=== PATIENT | male | born 1955 | race Caucasian/White ===

== ENCOUNTER 2019-12-08 19:22 | Inpatient (IN) ==
[2019-12-08] MEDS ORDERED: Naloxone 0.4 MG/ML INJ IVP PRN ×2 (22:50→23:20)
[2019-12-08] MEDS ORDERED: Fluticasone Propionate Nasal 50 MCG/SPRAY BOTTLE NS SCH (23:30)
[2019-12-09] MEDS ORDERED: niCARdipine 20 MG in 0.9 % Sodium Chloride 192 ML IVC SCH (00:30)
[2019-12-09 01:16] LABS: INR 1.2; Prothrombin Time 13.4 Seconds (9.4-12.1)
[2019-12-09 01:20] LABS: Magnesium 1.9 mg/dL (1.6-2.6); Phosphorous 4.3 mg/dL (2.7-4.5)
[2019-12-09 01:21] LABS: Calcium 7.7 mg/dL (8.6-10.3); Potassium 3.9 mEq/L (3.5-5.1)
[2019-12-09] MEDS: niCARdipine 20 MG/200 ML MLS IVC SCH ×3 (01:42→11:25)
[2019-12-09 01:57] LABS: Bilirubin,Urine Negative (Negative); Blood,Urine Moderate (Negative); Clarity,Urine Clear (Clear); Color,Urine Yellow (Yellow); Glucose,Urine (UA) 250 mg/dL (Normal); Ketones,Urine Trace mg/dL (Negative); Leukocyte Esterase,Urine Negative (Negative); Nitrite,Urine Negative (Negative); Protein,Urine >=1000 mg/dL (Neg-Trace); Specific Gravity,Urine 1.024 (1.010-1.025); Urobilinogen,Urine Normal (Normal)
[2019-12-09 02:00] LABS: Bacteria,Urine None Seen per hpf (None-Few); Hyaline Casts,Urine Few per lpf (None-Few); Squamous Epithelial Cell,Urine Many per lpf (None-Few)
[2019-12-09 02:03] LABS: Amphetamine Screen,Urine Negative ng/mL (Cutoff=1000); Barbiturate Screen,Urine Negative ng/mL (Cutoff=200); Benzodiazepines Screen,Urine Negative ng/mL (Cutoff=200); Cannabinoid Screen,Urine Negative ng/mL (Cutoff = 50); Cocaine Screen,Urine Negative ng/mL (Cutoff= 300); Opiate Screen,Urine Negative ng/mL (Cutoff=300); Phencyclidine Screen,Urine Negative ng/mL (Cutoff=25)
[2019-12-09 02:04] LABS: Sodium, Urine 52.8 mEq/L
[2019-12-09 02:29] LABS: Basophils % 0.6 %; Eosinophils # 0.2 K/mcL (0.0-0.6); Eosinophils % 2.1 %; Hematocrit 30.8 % (37.5-50.1); Hemoglobin 10.1 g/dL (12.9-16.9); Immature Granulocytes % 0.4 % (0-4); Lymphocytes # 1.5 K/mcL (0.6-4.6); Lymphocytes % 21.3 %; Mean Corpuscular HGB Conc 32.8 g/dL (31.6-35.5); Mean Corpuscular Hemoglobin 29.4 pg (28.0-33.3); Mean Corpuscular Volume 89.5 fL (83.0-100.0); Mean Platelet Volume 11.2 fL (9.4-12.4); Monocytes # 0.7 K/mcL (0.0-1.3); Monocytes % 9.2 %; Neutrophils # 4.8 K/mcL (1.6-8.9); Platelet Count 225 K/mcL (140-400); Red Blood Count 3.44 M/mcL (4.19-5.50); Red Cell Distribution Width 13.4 % (11.5-14.5); Segmented Neutrophils % 66.4 %; White Blood Count 7.2 K/mcL (4.3-11.1)
[2019-12-09 02:37] LABS: Calcium 7.6 mg/dL (8.6-10.3); Potassium 3.8 mEq/L (3.5-5.1)
[2019-12-09] MEDS ORDERED: *HR* Heparin 5,000 UNIT/ML VIAL IVP PRN (03:43)
[2019-12-09] MEDS: Heparin 25,000 UNIT/250 ML D5W 25,000 UNIT/250 ML IV.SOLN IVC SCH ×2 (04:03→20:18)
[2019-12-09] MEDS: *HR* Heparin 5,000 UNIT/ML VIAL IVP PRN (04:04)
[2019-12-09 05:47] LABS: Troponin I 0.07 ng/mL (< 0.04)
[2019-12-09] MEDS ORDERED: 0.9 % Sodium Chloride 1,000 ML IVC SCH (10:15)
[2019-12-09] MEDS ORDERED: amLODIPine 5 MG TABLET PO SCH ×2 (11:45)
[2019-12-09 13:09] LABS: Thyroid Stimulating Hormone 3.143 mcIU/mL (0.340-5.600)
[2019-12-09] MEDS: Isosorbide MONOnitrate (24 HR) 60 MG TAB.ER.24H PO SCH (13:42)
[2019-12-09 14:17] LABS: VBG Ionized Calcium 1.08 mmol/L (1.15-1.35)
[2019-12-09 14:33] LABS: Albumin 2.4 g/dL (3.5-5.7); Albumin/Globulin Ratio 0.7 (1.1-2.2); Bilirubin,Direct 0.1 mg/dL (0.0-0.2); Bilirubin,Indirect 0.3 mg/dL (0.0-1.0); Bilirubin,Total 0.4 mg/dL (0.3-1.0); Globulin 3.3 g/dL (2.4-3.5); Total Protein 5.7 g/dL (6.4-8.9)
[2019-12-09 14:34] LABS: Rheumatoid Factor < 10 IU/mL (Less than 14)
[2019-12-09 15:00] LABS: Complement C3 123 mg/dL (87-200)
[2019-12-09] MEDS: Furosemide 20 MG/2 ML VIAL IVP ONE (15:10)
[2019-12-09] MEDS: hydrALAZINE 25 MG TABLET PO SCH ×2 (15:10→23:58)
[2019-12-09] MEDS ORDERED: Perflutren Lipid Microsphere 1.3 ML in 0.9 % Sodium Chloride 8.7 ML IVP ONE (15:21)
[2019-12-09] MEDS ORDERED: hydrALAZINE 25 MG TABLET PO SCH (16:00)
[2019-12-09 19:09] LABS: Vitamin D 25 Hydroxy 14 ng/mL (30-80)
[2019-12-09] MEDS: *HR* OxyCODONE/APAP 5/325 TABLET PO PRN (20:20)
[2019-12-09] MEDS ORDERED: *HR* LORazepam 2 MG/ML VIAL IVP PRN ×3 (22:08)
[2019-12-10] MEDS: *HR* OxyCODONE/APAP 5/325 TABLET PO PRN (03:04)
[2019-12-10 04:23] LABS: Protein/Creatinine Ratio,Urine 9.39 mg/mg (0.00-0.20); Sodium, Urine 29.1 mEq/L
[2019-12-10] MEDS: hydrALAZINE 25 MG TABLET PO SCH ×3 (08:11→19:49)
[2019-12-10] MEDS: Isosorbide MONOnitrate (24 HR) 60 MG TAB.ER.24H PO SCH (08:11)
[2019-12-10] MEDS: Vitamin B Complex/Vit C/Vit E 1 EACH TABLET PO SCH (08:11)
[2019-12-10] MEDS: Folic Acid 1 MG TABLET PO SCH (08:11)
[2019-12-10] MEDS: Thiamine (B-1) 100 MG TABLET PO SCH (08:11)
[2019-12-10 09:55] LABS: Basophils % 0.3 %; Eosinophils # 0.1 K/mcL (0.0-0.6); Eosinophils % 1.3 %; Hematocrit 28.9 % (37.5-50.1); Hemoglobin 9.6 g/dL (12.9-16.9); Immature Granulocytes % 0.5 % (0-4); Lymphocytes # 0.9 K/mcL (0.6-4.6); Lymphocytes % 13.8 %; Mean Corpuscular HGB Conc 33.2 g/dL (31.6-35.5); Mean Corpuscular Hemoglobin 29.7 pg (28.0-33.3); Mean Corpuscular Volume 89.5 fL (83.0-100.0); Mean Platelet Volume 11.5 fL (9.4-12.4); Monocytes # 0.3 K/mcL (0.0-1.3); Monocytes % 4.6 %; Platelet Count 236 K/mcL (140-400); Red Blood Count 3.23 M/mcL (4.19-5.50); Red Cell Distribution Width 13.5 % (11.5-14.5); Segmented Neutrophils % 79.5 %; White Blood Count 6.3 K/mcL (4.3-11.1)
[2019-12-10] MEDS ORDERED: amLODIPine 5 MG TABLET PO SCH (10:00)
[2019-12-10 10:10] LABS: % Iron Saturation 21 % (20-55); Iron 44 mcg/dL (65-175); Transferrin 148 mg/dL (203-362)
[2019-12-10 10:29] LABS: Ferritin 191 ng/mL (20-250)
[2019-12-10] MEDS ORDERED: hydrALAZINE 25 MG TABLET PO ONE (11:20)
[2019-12-10] MEDS: Heparin 25,000 UNIT/250 ML D5W 25,000 UNIT/250 ML IV.SOLN IVC SCH (12:28)
[2019-12-10] MEDS: *HR* Heparin 5,000 UNIT/ML VIAL IVP PRN (15:18)
[2019-12-10] MEDS: Aspirin 81 MG TAB.CHEW PO SCH (20:00)
[2019-12-10] MEDS: amLODIPine 5 MG TABLET PO SCH (20:00)
[2019-12-10] MEDS: *HR* Heparin 5,000 UNIT/ML VIAL SQ SCH (20:34)
[2019-12-11 01:32] LABS: Amphetamine Screen,Urine Negative ng/mL (Cutoff=1000); Barbiturate Screen,Urine Negative ng/mL (Cutoff=200); Benzodiazepines Screen,Urine Negative ng/mL (Cutoff=200); Cannabinoid Screen,Urine Negative ng/mL (Cutoff = 50); Cocaine Screen,Urine Negative ng/mL (Cutoff= 300); Opiate Screen,Urine Negative ng/mL (Cutoff=300); Phencyclidine Screen,Urine Negative ng/mL (Cutoff=25)
[2019-12-11] MEDS: *HR* Heparin 5,000 UNIT/ML VIAL SQ SCH ×3 (04:38→19:57)
[2019-12-11] MEDS ORDERED: Regadenoson 0.4 MG/5 ML SYRINGE IVP ONE ×2 (06:13→12:42)
[2019-12-11 07:45] LABS: Basophils % 0.3 %; Eosinophils # 0.3 K/mcL (0.0-0.6); Eosinophils % 4.2 %; Hemoglobin 8.3 g/dL (12.9-16.9); Immature Granulocytes % 0.1 % (0-4); Lymphocytes # 1.4 K/mcL (0.6-4.6); Lymphocytes % 19.7 %; Mean Corpuscular HGB Conc 33.2 g/dL (31.6-35.5); Mean Corpuscular Hemoglobin 29.2 pg (28.0-33.3); Mean Platelet Volume 11.1 fL (9.4-12.4); Monocytes # 0.6 K/mcL (0.0-1.3); Monocytes % 8.4 %; Neutrophils # 4.7 K/mcL (1.6-8.9); Platelet Count 219 K/mcL (140-400); Red Blood Count 2.84 M/mcL (4.19-5.50); Red Cell Distribution Width 13.7 % (11.5-14.5); Segmented Neutrophils % 67.3 %; White Blood Count 6.9 K/mcL (4.3-11.1)
[2019-12-11] MEDS: Folic Acid 1 MG TABLET PO SCH (07:48)
[2019-12-11] MEDS: Vitamin B Complex/Vit C/Vit E 1 EACH TABLET PO SCH (07:48)
[2019-12-11] MEDS: amLODIPine 5 MG TABLET PO SCH ×2 (07:48→09:25)
[2019-12-11] MEDS: hydrALAZINE 25 MG TABLET PO SCH ×3 (07:48→19:58)
[2019-12-11] MEDS: Thiamine (B-1) 100 MG TABLET PO SCH (07:48)
[2019-12-11] MEDS: Aspirin 81 MG TAB.CHEW PO SCH (07:48)
[2019-12-11 08:04] LABS: Calcium 7.8 mg/dL (8.6-10.3); Potassium 3.4 mEq/L (3.5-5.1)
[2019-12-11] MEDS: *HR* OxyCODONE/APAP 5/325 TABLET PO PRN (20:04)
[2019-12-11] MEDS ORDERED: Furosemide 20 MG/2 ML VIAL IVP SCH (21:00)
[2019-12-12 00:50] LABS: Basophils % 0.5 %; Eosinophils # 0.2 K/mcL (0.0-0.6); Eosinophils % 4.5 %; Hematocrit 24.6 % (37.5-50.1); Hemoglobin 8.3 g/dL (12.9-16.9); Immature Granulocytes % 0.2 % (0-4); Lymphocytes # 0.9 K/mcL (0.6-4.6); Lymphocytes % 19.6 %; Mean Corpuscular HGB Conc 33.7 g/dL (31.6-35.5); Mean Corpuscular Volume 88.8 fL (83.0-100.0); Mean Platelet Volume 11.9 fL (9.4-12.4); Monocytes # 0.4 K/mcL (0.0-1.3); Neutrophils # 2.9 K/mcL (1.6-8.9); Platelet Count 184 K/mcL (140-400); Red Blood Count 2.77 M/mcL (4.19-5.50); Red Cell Distribution Width 13.6 % (11.5-14.5); Segmented Neutrophils % 66.2 %; White Blood Count 4.4 K/mcL (4.3-11.1)
[2019-12-12 01:05] LABS: Calcium 7.6 mg/dL (8.6-10.3); Potassium 3.8 mEq/L (3.5-5.1)
[2019-12-12] MEDS: *HR* OxyCODONE/APAP 5/325 TABLET PO PRN ×2 (04:33→11:11)
[2019-12-12] MEDS: *HR* Heparin 5,000 UNIT/ML VIAL SQ SCH ×3 (04:33→21:17)
[2019-12-12] MEDS: Aspirin 81 MG TAB.CHEW PO SCH (08:28)
[2019-12-12] MEDS: hydrALAZINE 25 MG TABLET PO SCH ×4 (08:28→21:16)
[2019-12-12] MEDS: Folic Acid 1 MG TABLET PO SCH (08:28)
[2019-12-12] MEDS: Vitamin B Complex/Vit C/Vit E 1 EACH TABLET PO SCH (08:28)
[2019-12-12] MEDS: amLODIPine 5 MG TABLET PO SCH (08:28)
[2019-12-12] MEDS: Thiamine (B-1) 100 MG TABLET PO SCH (08:28)
[2019-12-12 10:49] LABS: ANA IgG by ELISA NONE DETECTED (None Detected); Serine Protease-3 Antibody 0 AU/mL (0-19)
[2019-12-12] MEDS ORDERED: Furosemide 20 MG/2 ML VIAL IVP ONE (11:43)
[2019-12-12] MEDS: Furosemide 20 MG/2 ML VIAL IVP ONE (13:59)
[2019-12-12 19:14] LABS: CK-BB (CK isoenzymes) 0 % (0-0); CK-MB (CK isoenzymes) 4 % (0-4); CK-MM (CK-isoenzymes) 96 % (96-100)
[2019-12-13 01:04] LABS: Basophils % 0.3 %; Eosinophils # 0.2 K/mcL (0.0-0.6); Eosinophils % 6.1 %; Hematocrit 27.2 % (37.5-50.1); Hemoglobin 8.9 g/dL (12.9-16.9); Immature Granulocytes % 0.3 % (0-4); Lymphocytes # 0.8 K/mcL (0.6-4.6); Lymphocytes % 21.4 %; Mean Corpuscular HGB Conc 32.7 g/dL (31.6-35.5); Mean Corpuscular Hemoglobin 29.2 pg (28.0-33.3); Mean Corpuscular Volume 89.2 fL (83.0-100.0); Mean Platelet Volume 12.5 fL (9.4-12.4); Monocytes # 0.4 K/mcL (0.0-1.3); Neutrophils # 2.2 K/mcL (1.6-8.9); Platelet Count 168 K/mcL (140-400); Red Blood Count 3.05 M/mcL (4.19-5.50); Red Cell Distribution Width 13.7 % (11.5-14.5); Segmented Neutrophils % 61.9 %; White Blood Count 3.6 K/mcL (4.3-11.1)
[2019-12-13 01:19] LABS: Calcium 7.8 mg/dL (8.6-10.3); Potassium 4.6 mEq/L (3.5-5.1)
[2019-12-13] MEDS: *HR* Heparin 5,000 UNIT/ML VIAL SQ SCH ×3 (06:12→20:50)
[2019-12-13] MEDS: hydrALAZINE 25 MG TABLET PO SCH ×3 (08:07→20:49)
[2019-12-13] MEDS: Vitamin B Complex/Vit C/Vit E 1 EACH TABLET PO SCH (08:07)
[2019-12-13] MEDS: Folic Acid 1 MG TABLET PO SCH (08:07)
[2019-12-13] MEDS: Aspirin 81 MG TAB.CHEW PO SCH (08:07)
[2019-12-13] MEDS: amLODIPine 5 MG TABLET PO SCH (08:07)
[2019-12-13] MEDS: Thiamine (B-1) 100 MG TABLET PO SCH (08:07)
[2019-12-13] MEDS ORDERED: NIFEdipine XL (24 HR) 60 MG TAB.ER.24 PO SCH (09:15)
[2019-12-13 09:18] LABS: CK Total (Ck Isoenzymes) 403 U/L (20-200)
[2019-12-13] MEDS ORDERED: Furosemide 40 MG/4 ML VIAL IVP ONE (12:20)
[2019-12-13 14:05] LABS: Alpha 2 Globulin (PEP) 0.95 g/dL (0.48-1.05)
[2019-12-13] MEDS: NIFEdipine XL (24 HR) 60 MG TAB.ER.24 PO SCH (17:18)
[2019-12-14] MEDS: *HR* OxyCODONE/APAP 5/325 TABLET PO PRN ×3 (02:38→15:26)
[2019-12-14 05:01] LABS: Potassium 4.2 mEq/L (3.5-5.1)
[2019-12-14] MEDS: *HR* Heparin 5,000 UNIT/ML VIAL SQ SCH ×3 (06:17→22:33)
[2019-12-14 07:50] LABS: IFE Reflexed NOT DONE
[2019-12-14] MEDS: Thiamine (B-1) 100 MG TABLET PO SCH (09:00)
[2019-12-14] MEDS: Folic Acid 1 MG TABLET PO SCH (09:00)
[2019-12-14] MEDS: Aspirin 81 MG TAB.CHEW PO SCH (09:00)
[2019-12-14] MEDS: Vitamin B Complex/Vit C/Vit E 1 EACH TABLET PO SCH (09:00)
[2019-12-14] MEDS: hydrALAZINE 25 MG TABLET PO SCH ×3 (09:01→22:33)
[2019-12-14] MEDS: NIFEdipine XL (24 HR) 60 MG TAB.ER.24 PO SCH (10:11)
[2019-12-14] MEDS: Albumin 25% 25gram/100mL 25 GM/100 ML IV.SOLN IVPB SCH (15:33)
[2019-12-14] MEDS ORDERED: Furosemide 40 MG/4 ML VIAL IVP SCH (16:00)
[2019-12-15] MEDS: Albumin 25% 25gram/100mL 25 GM/100 ML IV.SOLN IVPB SCH ×4 (01:13→22:20)
[2019-12-15 02:06] LABS: Calcium 7.9 mg/dL (8.6-10.3); Magnesium 2.2 mg/dL (1.6-2.6); Potassium 4.7 mEq/L (3.5-5.1)
[2019-12-15] MEDS: Furosemide 40 MG/4 ML VIAL IVP SCH ×2 (03:36→11:28)
[2019-12-15] MEDS: *HR* Heparin 5,000 UNIT/ML VIAL SQ SCH (05:36)
[2019-12-15] MEDS: Thiamine (B-1) 100 MG TABLET PO SCH (08:59)
[2019-12-15] MEDS: hydrALAZINE 25 MG TABLET PO SCH ×3 (08:59→22:19)
[2019-12-15] MEDS: Folic Acid 1 MG TABLET PO SCH (09:00)
[2019-12-15] MEDS: Vitamin B Complex/Vit C/Vit E 1 EACH TABLET PO SCH (09:00)
[2019-12-15] MEDS: Aspirin 81 MG TAB.CHEW PO SCH (09:00)
[2019-12-15] MEDS: NIFEdipine XL (24 HR) 60 MG TAB.ER.24 PO SCH (09:00)
[2019-12-15] MEDS: *HR* OxyCODONE/APAP 5/325 TABLET PO PRN ×2 (09:05→15:09)
[2019-12-15 15:30] LABS: Bilirubin,Urine Negative (Negative); Blood,Urine Large (Negative); Clarity,Urine Cloudy (Clear); Color,Urine Yellow (Yellow); Glucose,Urine (UA) Normal (Normal); Ketones,Urine Negative (Negative); Leukocyte Esterase,Urine Small (Negative); Nitrite,Urine Negative (Negative); PH,Urine 5.5 pH Units (5.0-8.0); Protein,Urine >=300 mg/dL (Neg-Trace); Specific Gravity,Urine 1.016 (1.010-1.025); Urobilinogen,Urine Normal (Normal)
[2019-12-15 15:54] LABS: GBM IgG Multiplex Bead Assay 0 AU/mL (0-19); Glomerular Basement Memb IgG NEGATIVE (Negative)
[2019-12-15 16:32] LABS: Hepatitis B Surface Antigen Nonreactive (Nonreactive)
[2019-12-15 17:02] LABS: HIV-1&2 Antibody & p24 Ag Nonreactive (Nonreactive)
[2019-12-15 17:09] LABS: Hepatitis B Core IgM Nonreactive (Nonreactive)
[2019-12-15 17:12] LABS: Hepatitis A Antibody IgM Nonreactive (Nonreactive)
[2019-12-15 23:00] LABS: Hepatitis C Virus Antibody Reactive (Nonreactive)
[2019-12-16] MEDS: Furosemide 40 MG/4 ML VIAL IVP SCH (00:04)
[2019-12-16] MEDS: *HR* OxyCODONE/APAP 5/325 TABLET PO PRN ×3 (00:13→17:37)
[2019-12-16] MEDS ORDERED: Furosemide 40 MG/4 ML VIAL IVP ONE (00:15)
[2019-12-16 01:28] LABS: Basophils % 0.3 %; Eosinophils # 0.1 K/mcL (0.0-0.6); Eosinophils % 2.6 %; Hematocrit 24.8 % (37.5-50.1); Hemoglobin 8.2 g/dL (12.9-16.9); Immature Granulocytes % 0.3 % (0-4); Lymphocytes # 0.5 K/mcL (0.6-4.6); Lymphocytes % 13.3 %; Mean Corpuscular HGB Conc 33.1 g/dL (31.6-35.5); Mean Corpuscular Hemoglobin 29.9 pg (28.0-33.3); Mean Corpuscular Volume 90.5 fL (83.0-100.0); Mean Platelet Volume 12.4 fL (9.4-12.4); Monocytes # 0.3 K/mcL (0.0-1.3); Monocytes % 8.7 %; Neutrophils # 2.9 K/mcL (1.6-8.9); Platelet Count 179 K/mcL (140-400); Red Blood Count 2.74 M/mcL (4.19-5.50); Red Cell Distribution Width 13.6 % (11.5-14.5); Segmented Neutrophils % 74.8 %; White Blood Count 3.9 K/mcL (4.3-11.1)
[2019-12-16 01:47] LABS: Calcium 8.6 mg/dL (8.6-10.3); Potassium 5.1 mEq/L (3.5-5.1)
[2019-12-16] MEDS ORDERED: *HR* OxyCODONE Immed Rel 5 MG TABLET PO ONE (04:51)
[2019-12-16] MEDS: Albumin 25% 25gram/100mL 25 GM/100 ML IV.SOLN IVPB SCH ×2 (06:04→13:11)
[2019-12-16] MEDS: Thiamine (B-1) 100 MG TABLET PO SCH (07:39)
[2019-12-16] MEDS: Folic Acid 1 MG TABLET PO SCH (07:40)
[2019-12-16] MEDS: NIFEdipine XL (24 HR) 60 MG TAB.ER.24 PO SCH (07:40)
[2019-12-16] MEDS: Vitamin B Complex/Vit C/Vit E 1 EACH TABLET PO SCH (07:40)
[2019-12-16] MEDS: hydrALAZINE 25 MG TABLET PO SCH ×3 (07:40→19:48)
[2019-12-16] MEDS: Aspirin 81 MG TAB.CHEW PO SCH (07:40)
[2019-12-16] MEDS ORDERED: *HR* Heparin 5,000 UNIT/ML VIAL ONE (19:29)
[2019-12-17] MEDS: *HR* OxyCODONE/APAP 5/325 TABLET PO PRN (02:27)
[2019-12-17 05:47] LABS: Basophils % 0.4 %; Eosinophils # 0.1 K/mcL (0.0-0.6); Eosinophils % 3.1 %; Hematocrit 27.3 % (37.5-50.1); Hemoglobin 8.8 g/dL (12.9-16.9); Immature Granulocytes % 0.2 % (0-4); Lymphocytes # 0.7 K/mcL (0.6-4.6); Lymphocytes % 14.8 %; Mean Corpuscular HGB Conc 32.2 g/dL (31.6-35.5); Mean Corpuscular Hemoglobin 29.2 pg (28.0-33.3); Mean Corpuscular Volume 90.7 fL (83.0-100.0); Mean Platelet Volume 12.1 fL (9.4-12.4); Monocytes # 0.4 K/mcL (0.0-1.3); Monocytes % 9.4 %; Neutrophils # 3.2 K/mcL (1.6-8.9); Platelet Count 225 K/mcL (140-400); Red Blood Count 3.01 M/mcL (4.19-5.50); Red Cell Distribution Width 13.5 % (11.5-14.5); Segmented Neutrophils % 72.1 %; White Blood Count 4.5 K/mcL (4.3-11.1)
[2019-12-17 06:07] LABS: Calcium 8.9 mg/dL (8.6-10.3); Potassium 4.8 mEq/L (3.5-5.1)
[2019-12-17] MEDS: hydrALAZINE 25 MG TABLET PO SCH ×3 (07:18→19:57)
[2019-12-17] MEDS: Thiamine (B-1) 100 MG TABLET PO SCH (07:19)
[2019-12-17] MEDS: Vitamin B Complex/Vit C/Vit E 1 EACH TABLET PO SCH (07:19)
[2019-12-17] MEDS: Isosorbide MONOnitrate (24 HR) 60 MG TAB.ER.24H PO SCH (07:19)
[2019-12-17] MEDS: Aspirin 81 MG TAB.CHEW PO SCH (07:19)
[2019-12-17] MEDS: NIFEdipine XL (24 HR) 60 MG TAB.ER.24 PO SCH (07:19)
[2019-12-17] MEDS: Folic Acid 1 MG TABLET PO SCH (07:19)
[2019-12-17] MEDS ORDERED: 0.9 % Sodium Chloride 500 ML ONE (13:00)
[2019-12-17] MEDS ORDERED: *HR* FentaNYL (PF) 100 MCG/2 ML VIAL IVP ONE (13:06)
[2019-12-17] MEDS ORDERED: *HR* Midazolam HCl 2 MG/2 ML VIAL IVP ONE (13:06)
[2019-12-18 01:50] LABS: Basophils % 0.5 %; Eosinophils # 0.1 K/mcL (0.0-0.6); Eosinophils % 2.1 %; Hematocrit 25.2 % (37.5-50.1); Hemoglobin 8.3 g/dL (12.9-16.9); Immature Granulocytes % 0.5 % (0-4); Lymphocytes # 0.5 K/mcL (0.6-4.6); Lymphocytes % 11.2 %; Mean Corpuscular HGB Conc 32.9 g/dL (31.6-35.5); Mean Corpuscular Hemoglobin 29.4 pg (28.0-33.3); Mean Corpuscular Volume 89.4 fL (83.0-100.0); Mean Platelet Volume 12.4 fL (9.4-12.4); Monocytes # 0.5 K/mcL (0.0-1.3); Monocytes % 10.6 %; Neutrophils # 3.3 K/mcL (1.6-8.9); Platelet Count 205 K/mcL (140-400); Red Blood Count 2.82 M/mcL (4.19-5.50); Red Cell Distribution Width 13.3 % (11.5-14.5); Segmented Neutrophils % 75.1 %; White Blood Count 4.4 K/mcL (4.3-11.1)
[2019-12-18 01:54] LABS: Calcium 8.5 mg/dL (8.6-10.3); Potassium 4.9 mEq/L (3.5-5.1)
[2019-12-18 09:44] LABS: Albumin 3.6 g/dL (3.5-5.7); Albumin/Globulin Ratio 1.4 (1.1-2.2); Bilirubin,Direct 0.1 mg/dL (0.0-0.2); Bilirubin,Indirect 0.2 mg/dL (0.0-1.0); Bilirubin,Total 0.3 mg/dL (0.3-1.0); Globulin 2.6 g/dL (2.4-3.5); Total Protein 6.2 g/dL (6.4-8.9)
[2019-12-18] MEDS: polyethylene glycoL 3350 17 GM POWD.PACK PO SCH ×2 (11:00→20:48)
[2019-12-18] MEDS: Isosorbide MONOnitrate (24 HR) 60 MG TAB.ER.24H PO SCH (14:54)
[2019-12-18] MEDS: Aspirin 81 MG TAB.CHEW PO SCH (14:54)
[2019-12-18] MEDS: Folic Acid 1 MG TABLET PO SCH (14:54)
[2019-12-18] MEDS: Thiamine (B-1) 100 MG TABLET PO SCH (14:54)
[2019-12-18] MEDS: Vitamin B Complex/Vit C/Vit E 1 EACH TABLET PO SCH (14:54)
[2019-12-18] MEDS: hydrALAZINE 25 MG TABLET PO SCH ×3 (14:59→20:39)
[2019-12-18] MEDS: NIFEdipine XL (24 HR) 60 MG TAB.ER.24 PO SCH (14:59)
[2019-12-18] MEDS: *HR* OxyCODONE/APAP 5/325 TABLET PO PRN (20:40)
[2019-12-19 01:28] LABS: Basophils % 0.3 %; Eosinophils # 0.1 K/mcL (0.0-0.6); Hematocrit 24.6 % (37.5-50.1); Hemoglobin 7.9 g/dL (12.9-16.9); Immature Granulocytes % 0.3 % (0-4); Lymphocytes # 0.4 K/mcL (0.6-4.6); Lymphocytes % 10.2 %; Mean Corpuscular HGB Conc 32.1 g/dL (31.6-35.5); Mean Corpuscular Hemoglobin 29.7 pg (28.0-33.3); Mean Corpuscular Volume 92.5 fL (83.0-100.0); Mean Platelet Volume 12.3 fL (9.4-12.4); Monocytes # 0.4 K/mcL (0.0-1.3); Monocytes % 10.9 %; Platelet Count 201 K/mcL (140-400); Red Blood Count 2.66 M/mcL (4.19-5.50); Red Cell Distribution Width 13.3 % (11.5-14.5); Segmented Neutrophils % 76.3 %; White Blood Count 3.9 K/mcL (4.3-11.1)
[2019-12-19 01:49] LABS: Calcium 8.3 mg/dL (8.6-10.3); Potassium 4.8 mEq/L (3.5-5.1)
[2019-12-19] MEDS: *HR* OxyCODONE/APAP 5/325 TABLET PO PRN ×3 (03:04→18:12)
[2019-12-19] MEDS: Vitamin B Complex/Vit C/Vit E 1 EACH TABLET PO SCH (09:20)
[2019-12-19] MEDS: hydrALAZINE 25 MG TABLET PO SCH ×3 (09:20→21:32)
[2019-12-19] MEDS: Aspirin 81 MG TAB.CHEW PO SCH (09:20)
[2019-12-19] MEDS: Isosorbide MONOnitrate (24 HR) 60 MG TAB.ER.24H PO SCH (09:20)
[2019-12-19] MEDS: Folic Acid 1 MG TABLET PO SCH (09:20)
[2019-12-19] MEDS: NIFEdipine XL (24 HR) 60 MG TAB.ER.24 PO SCH (09:20)
[2019-12-19] MEDS: Thiamine (B-1) 100 MG TABLET PO SCH (09:20)
[2019-12-19] MEDS: polyethylene glycoL 3350 17 GM POWD.PACK PO SCH (10:25)
[2019-12-19 15:51] LABS: AFP Tumor Marker Non-Pregnant 2 ng/mL (0-9)
[2019-12-20] MEDS: *HR* OxyCODONE/APAP 5/325 TABLET PO PRN ×4 (00:15→21:18)
[2019-12-20 01:04] LABS: Basophils % 0.3 %; Eosinophils # 0.1 K/mcL (0.0-0.6); Eosinophils % 2.9 %; Hematocrit 24.6 % (37.5-50.1); Hemoglobin 7.8 g/dL (12.9-16.9); Immature Granulocytes % 0.5 % (0-4); Lymphocytes # 0.4 K/mcL (0.6-4.6); Lymphocytes % 10.1 %; Mean Corpuscular HGB Conc 31.7 g/dL (31.6-35.5); Mean Corpuscular Volume 91.4 fL (83.0-100.0); Monocytes # 0.4 K/mcL (0.0-1.3); Monocytes % 9.8 %; Neutrophils # 2.9 K/mcL (1.6-8.9); Platelet Count 202 K/mcL (140-400); Red Blood Count 2.69 M/mcL (4.19-5.50); Red Cell Distribution Width 13.2 % (11.5-14.5); Segmented Neutrophils % 76.4 %; White Blood Count 3.8 K/mcL (4.3-11.1)
[2019-12-20 01:21] LABS: Calcium 8.4 mg/dL (8.6-10.3)
[2019-12-20 08:43] LABS: ANA IgG by ELISA NONE DETECTED (None Detected); F-Actin (sm muscle) Ab IgG 7 Units (0-19)
[2019-12-20] MEDS: NIFEdipine XL (24 HR) 60 MG TAB.ER.24 PO SCH (09:44)
[2019-12-20] MEDS: Vitamin B Complex/Vit C/Vit E 1 EACH TABLET PO SCH (09:44)
[2019-12-20] MEDS: Folic Acid 1 MG TABLET PO SCH (09:44)
[2019-12-20] MEDS: Thiamine (B-1) 100 MG TABLET PO SCH (09:44)
[2019-12-20] MEDS: Aspirin 81 MG TAB.CHEW PO SCH (09:45)
[2019-12-20] MEDS: hydrALAZINE 25 MG TABLET PO SCH ×3 (09:45→21:17)
[2019-12-20] MEDS: Isosorbide MONOnitrate (24 HR) 60 MG TAB.ER.24H PO SCH (09:45)
[2019-12-20] MEDS: polyethylene glycoL 3350 17 GM POWD.PACK PO SCH (09:46)
[2019-12-21] MEDS ORDERED: *HR* LORazepam 2 MG/ML VIAL IVP ONE ×3 (00:35→23:17)
[2019-12-21 06:14] LABS: Basophils % 0.5 %; Eosinophils # 0.1 K/mcL (0.0-0.6); Hematocrit 26.2 % (37.5-50.1); Hemoglobin 8.3 g/dL (12.9-16.9); Immature Granulocytes % 0.3 % (0-4); Lymphocytes # 0.5 K/mcL (0.6-4.6); Lymphocytes % 12.1 %; Mean Corpuscular HGB Conc 31.7 g/dL (31.6-35.5); Mean Corpuscular Hemoglobin 29.3 pg (28.0-33.3); Mean Corpuscular Volume 92.6 fL (83.0-100.0); Mean Platelet Volume 12.3 fL (9.4-12.4); Monocytes # 0.4 K/mcL (0.0-1.3); Monocytes % 11.1 %; Neutrophils # 2.9 K/mcL (1.6-8.9); Platelet Count 224 K/mcL (140-400); Red Blood Count 2.83 M/mcL (4.19-5.50); Red Cell Distribution Width 13.4 % (11.5-14.5)
[2019-12-21 06:34] LABS: Calcium 8.8 mg/dL (8.6-10.3)
[2019-12-21] MEDS: Thiamine (B-1) 100 MG TABLET PO SCH (09:31)
[2019-12-21] MEDS: NIFEdipine XL (24 HR) 60 MG TAB.ER.24 PO SCH (09:31)
[2019-12-21] MEDS: Folic Acid 1 MG TABLET PO SCH (09:32)
[2019-12-21] MEDS: hydrALAZINE 25 MG TABLET PO SCH ×3 (09:32→23:00)
[2019-12-21] MEDS: Isosorbide MONOnitrate (24 HR) 60 MG TAB.ER.24H PO SCH (09:32)
[2019-12-21] MEDS: Aspirin 81 MG TAB.CHEW PO SCH (09:32)
[2019-12-21] MEDS: polyethylene glycoL 3350 17 GM POWD.PACK PO SCH (09:32)
[2019-12-21] MEDS: Vitamin B Complex/Vit C/Vit E 1 EACH TABLET PO SCH (09:32)
[2019-12-21 12:14] LABS: HCV Quant Interpretation DETECTED (Not Detected); HCV Quant Log 6.05 log IU/mL
[2019-12-21] MEDS: Cholecalciferol (D-3) 1,000 UNIT (25MCG) TABLET PO SCH (17:03)
[2019-12-22] MEDS ORDERED: Haloperidol Lactate 5 MG/ML VIAL IVP ONE ×2 (00:10→03:14)
[2019-12-22 00:37] LABS: Basophils % 0.6 %; Eosinophils # 0.2 K/mcL (0.0-0.6); Eosinophils % 3.2 %; Hematocrit 25.7 % (37.5-50.1); Hemoglobin 8.1 g/dL (12.9-16.9); Immature Granulocytes % 0.4 % (0-4); Lymphocytes # 0.5 K/mcL (0.6-4.6); Lymphocytes % 11.3 %; Mean Corpuscular HGB Conc 31.5 g/dL (31.6-35.5); Mean Corpuscular Hemoglobin 28.9 pg (28.0-33.3); Mean Corpuscular Volume 91.8 fL (83.0-100.0); Mean Platelet Volume 11.9 fL (9.4-12.4); Monocytes # 0.5 K/mcL (0.0-1.3); Monocytes % 11.1 %; Neutrophils # 3.5 K/mcL (1.6-8.9); Platelet Count 243 K/mcL (140-400); Red Cell Distribution Width 13.2 % (11.5-14.5); Segmented Neutrophils % 73.4 %; White Blood Count 4.7 K/mcL (4.3-11.1)
[2019-12-22 00:44] LABS: Calcium 8.7 mg/dL (8.6-10.3); Potassium 4.8 mEq/L (3.5-5.1)
[2019-12-22] MEDS ORDERED: *HR* LORazepam 2 MG/ML VIAL IVP ONE ×2 (02:10→08:53)
[2019-12-22] MEDS ORDERED: OLANZapine 10 MG VIAL IM PRN ×2 (08:43→18:57)
[2019-12-22] MEDS ORDERED: Haloperidol Lactate 5 MG/ML VIAL IVP PRN (09:05)
[2019-12-22] MEDS ORDERED: Water for inj. (sterile) 10 ML ONE (09:06)
[2019-12-22] MEDS: Thiamine (B-1) 100 MG TABLET PO SCH (11:09)
[2019-12-22] MEDS: Folic Acid 1 MG TABLET PO SCH (11:09)
[2019-12-22] MEDS: Isosorbide MONOnitrate (24 HR) 60 MG TAB.ER.24H PO SCH (11:09)
[2019-12-22] MEDS: Aspirin 81 MG TAB.CHEW PO SCH (11:09)
[2019-12-22] MEDS: Cholecalciferol (D-3) 1,000 UNIT (25MCG) TABLET PO SCH (11:09)
[2019-12-22] MEDS: Vitamin B Complex/Vit C/Vit E 1 EACH TABLET PO SCH (11:09)
[2019-12-22] MEDS: NIFEdipine XL (24 HR) 60 MG TAB.ER.24 PO SCH (11:09)
[2019-12-22] MEDS: polyethylene glycoL 3350 17 GM POWD.PACK PO SCH (11:09)
[2019-12-22] MEDS: hydrALAZINE 25 MG TABLET PO SCH ×3 (11:09→21:57)
[2019-12-22] MEDS ORDERED: *HR* LORazepam 2 MG/ML VIAL IVP PRN (18:56)
[2019-12-22] MEDS ORDERED: GuaiFENesin/Dextromethorphan TABLET PO PRN (20:49)
[2019-12-22] MEDS ORDERED: Ipratropium/Albuterol Neb 3 ML IH PRN (20:49)
[2019-12-22 22:57] LABS: Bilirubin,Urine Negative (Negative); Blood,Urine Negative (Negative); Clarity,Urine Cloudy (Clear); Color,Urine Yellow (Yellow); Glucose,Urine (UA) Normal (Normal); Ketones,Urine Negative (Negative); Leukocyte Esterase,Urine Negative (Negative); Nitrite,Urine Negative (Negative); PH,Urine 5.5 pH Units (5.0-8.0); Protein,Urine >=300 mg/dL (Neg-Trace); Urobilinogen,Urine Normal (Normal)
[2019-12-22 23:00] LABS: Bacteria,Urine None Seen per hpf (None-Few); Hyaline Casts,Urine None Seen per lpf (None-Few); Squamous Epithelial Cell,Urine Many per lpf (None-Few)
[2019-12-23 00:33] LABS: APTT (LE Anticoag) 40 sec (32-48); Diluted Russell Viper Venom 36 sec (33-44); PT (LE-Anticoag) 14.7 sec (12.0-15.5)
[2019-12-23 00:59] LABS: Hematocrit 23.5 % (37.5-50.1); Hemoglobin 7.5 g/dL (12.9-16.9); Mean Corpuscular HGB Conc 31.9 g/dL (31.6-35.5); Mean Corpuscular Hemoglobin 30.1 pg (28.0-33.3); Mean Corpuscular Volume 94.4 fL (83.0-100.0); Mean Platelet Volume 11.9 fL (9.4-12.4); Platelet Count 192 K/mcL (140-400); Red Blood Count 2.49 M/mcL (4.19-5.50); Red Cell Distribution Width 13.6 % (11.5-14.5); White Blood Count 4.1 K/mcL (4.3-11.1)
[2019-12-23 01:21] LABS: Calcium 8.4 mg/dL (8.6-10.3); Potassium 4.5 mEq/L (3.5-5.1)
[2019-12-23] MEDS: hydrALAZINE 25 MG TABLET PO SCH ×3 (08:06→21:57)
[2019-12-23] MEDS: Thiamine (B-1) 100 MG TABLET PO SCH (08:06)
[2019-12-23] MEDS: Cholecalciferol (D-3) 1,000 UNIT (25MCG) TABLET PO SCH (08:06)
[2019-12-23] MEDS: Aspirin 81 MG TAB.CHEW PO SCH (08:06)
[2019-12-23] MEDS: NIFEdipine XL (24 HR) 60 MG TAB.ER.24 PO SCH (08:06)
[2019-12-23] MEDS: Vitamin B Complex/Vit C/Vit E 1 EACH TABLET PO SCH (08:07)
[2019-12-23] MEDS: Folic Acid 1 MG TABLET PO SCH (08:07)
[2019-12-23] MEDS: polyethylene glycoL 3350 17 GM POWD.PACK PO SCH (08:07)
[2019-12-23] MEDS: Isosorbide MONOnitrate (24 HR) 60 MG TAB.ER.24H PO SCH (08:07)
[2019-12-23] MEDS: *HR* OxyCODONE/APAP 5/325 TABLET PO PRN (09:52)
[2019-12-23] MEDS ORDERED: *HR* LORazepam 2 MG/ML VIAL IVP ONE (16:27)
[2019-12-23] MEDS ORDERED: QUEtiapine Fumarate 25 MG TABLET PO STA (16:28)
[2019-12-23] MEDS ORDERED: QUEtiapine Fumarate 25 MG TABLET PO SCH (21:00)
[2019-12-24] MEDS: *HR* OxyCODONE/APAP 5/325 TABLET PO PRN ×2 (05:42→15:30)
[2019-12-24 07:21] LABS: Hematocrit 24.8 % (37.5-50.1); Hemoglobin 7.8 g/dL (12.9-16.9); Mean Corpuscular HGB Conc 31.5 g/dL (31.6-35.5); Mean Corpuscular Hemoglobin 29.4 pg (28.0-33.3); Mean Corpuscular Volume 93.6 fL (83.0-100.0); Platelet Count 227 K/mcL (140-400); Red Blood Count 2.65 M/mcL (4.19-5.50); Red Cell Distribution Width 13.3 % (11.5-14.5)
[2019-12-24 07:47] LABS: Calcium 8.5 mg/dL (8.6-10.3); Potassium 4.5 mEq/L (3.5-5.1)
[2019-12-24] MEDS: Folic Acid 1 MG TABLET PO SCH (08:48)
[2019-12-24] MEDS: Aspirin 81 MG TAB.CHEW PO SCH (08:48)
[2019-12-24] MEDS: NIFEdipine XL (24 HR) 60 MG TAB.ER.24 PO SCH (08:48)
[2019-12-24] MEDS: Thiamine (B-1) 100 MG TABLET PO SCH (08:48)
[2019-12-24] MEDS: Isosorbide MONOnitrate (24 HR) 60 MG TAB.ER.24H PO SCH (08:48)
[2019-12-24] MEDS: Vitamin B Complex/Vit C/Vit E 1 EACH TABLET PO SCH (08:48)
[2019-12-24] MEDS: hydrALAZINE 25 MG TABLET PO SCH ×3 (08:48→23:47)
[2019-12-24] MEDS: polyethylene glycoL 3350 17 GM POWD.PACK PO SCH (08:49)
[2019-12-24] MEDS: Cholecalciferol (D-3) 1,000 UNIT (25MCG) TABLET PO SCH (08:49)
[2019-12-24] MEDS ORDERED: QUEtiapine Fumarate 25 MG TABLET PO ONE (13:19)
[2019-12-24 15:20] LABS: HCV Genotype by Sequencing 1A OR 1B
[2019-12-24] MEDS: QUEtiapine Fumarate 25 MG TABLET PO SCH (23:47)
[2019-12-25] MEDS: hydrALAZINE 25 MG TABLET PO SCH ×3 (00:05→16:16)
[2019-12-25] MEDS: QUEtiapine Fumarate 25 MG TABLET PO SCH (00:06)
[2019-12-25 05:33] LABS: Hematocrit 23.3 % (37.5-50.1); Hemoglobin 7.6 g/dL (12.9-16.9); Mean Corpuscular HGB Conc 32.6 g/dL (31.6-35.5); Mean Corpuscular Hemoglobin 30.4 pg (28.0-33.3); Mean Corpuscular Volume 93.2 fL (83.0-100.0); Mean Platelet Volume 11.6 fL (9.4-12.4); Platelet Count 217 K/mcL (140-400); Red Cell Distribution Width 13.2 % (11.5-14.5)
[2019-12-25 05:51] LABS: Calcium 8.3 mg/dL (8.6-10.3); Potassium 4.8 mEq/L (3.5-5.1)
[2019-12-25] MEDS: Vitamin B Complex/Vit C/Vit E 1 EACH TABLET PO SCH (07:54)
[2019-12-25] MEDS: NIFEdipine XL (24 HR) 60 MG TAB.ER.24 PO SCH (07:55)
[2019-12-25] MEDS: Isosorbide MONOnitrate (24 HR) 60 MG TAB.ER.24H PO SCH (07:55)
[2019-12-25] MEDS: polyethylene glycoL 3350 17 GM POWD.PACK PO SCH (07:55)
[2019-12-25] MEDS: Aspirin 81 MG TAB.CHEW PO SCH (07:55)
[2019-12-25] MEDS: Thiamine (B-1) 100 MG TABLET PO SCH (07:55)
[2019-12-25] MEDS: Folic Acid 1 MG TABLET PO SCH (07:55)
[2019-12-25] MEDS: Cholecalciferol (D-3) 1,000 UNIT (25MCG) TABLET PO SCH (07:55)
[2019-12-25 16:15] VITALS: BP 141/76
[2019-12-25] MEDS: *HR* OxyCODONE/APAP 5/325 TABLET PO PRN (16:16)
[2019-12-26] MEDS ORDERED: NIFEdipine XL (24 HR) 30 MG TAB.ER.24 PO SCH (09:00)
== END 2019-12-25 18:44 | DRG 280 ==
LOC: 2NENU → SUATTDRO 20:55 → 3NENU 12-09 00:13 → SUATTDRO 12-10 16:42 → 2ANU 12-17 18:03
PROVIDERS: ADMIT Family Medicine; ATTEND Internal Medicine

== ENCOUNTER 2020-01-02 17:54 | Inpatient (IN) ==
[2020-01-02] MEDS ORDERED: Naloxone 0.4 MG/ML INJ IVP PRN (22:45)
[2020-01-02] MEDS ORDERED: Artificial Tears SOLN 15 ML BOTTLE BOTH EYES PRN (22:48)
[2020-01-03] MEDS: Chlorhexidine Rinse 15 ML MOUTHWASH MM SCH ×3 (00:18→20:00)
[2020-01-03] MEDS: Artificial Tears SOLN 15 ML BOTTLE BOTH EYES SCH ×7 (00:18→23:15)
[2020-01-03 00:30] LABS: Basophils % 0.1 %; Eosinophils % 0.2 %; Hematocrit 27.3 % (37.5-50.1); Hemoglobin 8.6 g/dL (12.9-16.9); Immature Granulocytes % 0.5 % (0-4); Lymphocytes # 0.3 K/mcL (0.6-4.6); Lymphocytes % 3.2 %; Mean Corpuscular HGB Conc 31.5 g/dL (31.6-35.5); Mean Corpuscular Hemoglobin 29.3 pg (28.0-33.3); Mean Corpuscular Volume 92.9 fL (83.0-100.0); Mean Platelet Volume 11.6 fL (9.4-12.4); Monocytes # 0.9 K/mcL (0.0-1.3); Monocytes % 10.6 %; Neutrophils # 7.2 K/mcL (1.6-8.9); Platelet Count 159 K/mcL (140-400); Red Blood Count 2.94 M/mcL (4.19-5.50); Red Cell Distribution Width 13.5 % (11.5-14.5); Segmented Neutrophils % 85.4 %; White Blood Count 8.4 K/mcL (4.3-11.1)
[2020-01-03 00:35] LABS: INR 1.2; Prothrombin Time 13.1 Seconds (9.4-12.1)
[2020-01-03 00:50] LABS: Albumin 3.2 g/dL (3.5-5.7); Albumin/Globulin Ratio 1.1 (1.1-2.2); Bilirubin,Total 0.7 mg/dL (0.3-1.0); Calcium 7.7 mg/dL (8.6-10.3); Globulin 2.8 g/dL (2.4-3.5); Magnesium 2.5 mg/dL (1.6-2.6); Potassium 4.6 mEq/L (3.5-5.1)
[2020-01-03] MEDS ORDERED: Vancomycin 1,500 MG/265 ML IV.SOLN IVPB ONE (01:00)
[2020-01-03] MEDS ORDERED: *HR* Heparin 5,000 UNIT/ML VIAL IVP PRN ×2 (01:38)
[2020-01-03] MEDS ORDERED: *HR* Heparin 5,000 UNIT/ML VIAL IVP ONE (01:38)
[2020-01-03] MEDS: Heparin 25,000 UNIT/250 ML D5W 25,000 UNIT/250 ML IV.SOLN IVC SCH (02:19)
[2020-01-03 04:42] LABS: ABG Base Excess -5 mEq/L (-2 to 3); ABG HCO3 21 mEq/L (21-27); ABG Oxygen Saturation 77 % (95-98); ABG PCO2 41 mmHg (35-45); ABG PH 7.32 pH Units (7.32-7.45); ABG PO2 45 mmHg (85-104); ABG TCO2 22 mEq/L (20-26); Blood Gas VT 550 cc
[2020-01-03 05:25] LABS: ABG Base Excess -5 mEq/L (-2 to 3); ABG HCO3 21 mEq/L (21-27); ABG Oxygen Saturation 99 % (95-98); ABG PCO2 41 mmHg (35-45); ABG PH 7.32 pH Units (7.32-7.45); ABG PO2 166 mmHg (85-104); ABG TCO2 23 mEq/L (20-26); Blood Gas VT 550 cc
[2020-01-03] MEDS: FentaNYL (PF) 1,000 MCG/100 ML IV.SOLN IVC SCH ×2 (06:00→23:14)
[2020-01-03] MEDS: Piperacillin/Tazobactam 3.375 GM in 0.9 % Sodium Chloride Mini Bag 100 ML IVPB SCH ×2 (06:55→18:23)
[2020-01-03] MEDS ORDERED: Piperacillin/Tazobactam 3.375 GM in 0.9 % Sodium Chloride Mini Bag 100 ML IVPB SCH (08:00)
[2020-01-03] MEDS ORDERED: Perflutren Lipid Microsphere 1.3 ML in 0.9 % Sodium Chloride 8.7 ML IVP ONE (08:54)
[2020-01-03] MEDS: Pantoprazole 40 MG VIAL IVP SCH ×2 (09:56→18:23)
[2020-01-03] MEDS ORDERED: Dextrose Gel 15 GM/37.5 ML TUBE PO PRN ×2 (10:12)
[2020-01-03] MEDS: *HR* Dextrose 50 % in Water (Syg) 50 ML SYRINGE IVP PRN (10:51)
[2020-01-03] MEDS ORDERED: Furosemide 40 MG/4 ML VIAL IVP ONE (11:48)
[2020-01-03] MEDS: Calcium Gluconate 1gm/50mL 1 GM/50 ML BAG IVPB SCH ×2 (12:08→13:02)
[2020-01-03 12:22] LABS: Albumin 3.1 g/dL (3.5-5.7); Albumin/Globulin Ratio 1.2 (1.1-2.2); Basophils % 0.3 %; Bilirubin,Total 0.4 mg/dL (0.3-1.0); Calcium 7.5 mg/dL (8.6-10.3); Eosinophils # 0.1 K/mcL (0.0-0.6); Globulin 2.6 g/dL (2.4-3.5); Hematocrit 27.6 % (37.5-50.1); Hemoglobin 8.9 g/dL (12.9-16.9); Immature Granulocytes % 0.4 % (0-4); Lymphocytes # 0.4 K/mcL (0.6-4.6); Magnesium 2.4 mg/dL (1.6-2.6); Mean Corpuscular HGB Conc 32.2 g/dL (31.6-35.5); Mean Corpuscular Hemoglobin 29.1 pg (28.0-33.3); Mean Corpuscular Volume 90.2 fL (83.0-100.0); Monocytes # 0.9 K/mcL (0.0-1.3); Monocytes % 12.8 %; Neutrophils # 5.4 K/mcL (1.6-8.9); Platelet Count 162 K/mcL (140-400); Potassium 4.4 mEq/L (3.5-5.1); Red Blood Count 3.06 M/mcL (4.19-5.50); Red Cell Distribution Width 13.9 % (11.5-14.5); Segmented Neutrophils % 79.5 %; Total Protein 5.7 g/dL (6.4-8.9); White Blood Count 6.9 K/mcL (4.3-11.1)
[2020-01-03] MEDS ORDERED: 0.9 % Sodium Chloride 250 ML IVC PRN (13:54)
[2020-01-03] MEDS ORDERED: *HR* Heparin 10,000 UNIT/10 ML VIAL IV PRN (13:54)
[2020-01-03] MEDS ORDERED: 0.9 % Sodium Chloride 1,000 ML PRIME SCH (14:00)
[2020-01-03 17:18] LABS: Hepatitis B Surface Antibody < 3.10 mIU/mL
[2020-01-03 17:30] LABS: Hepatitis B Surface Antigen Nonreactive (Nonreactive)
[2020-01-03 20:12] LABS: Hematocrit 27.2 % (37.5-50.1); Hemoglobin 8.8 g/dL (12.9-16.9)
[2020-01-04 04:22] LABS: ABG Base Excess -4 mEq/L (-2 to 3); ABG HCO3 20 mEq/L (21-27); ABG Oxygen Saturation 93 % (95-98); ABG PCO2 32 mmHg (35-45); ABG PH 7.41 pH Units (7.32-7.45); ABG PO2 66 mmHg (85-104); ABG TCO2 21 mEq/L (20-26); Blood Gas Modality AF; Blood Gas VT 550 cc
[2020-01-04 04:51] LABS: Bilirubin,Urine Small (Negative); Blood,Urine Small (Negative); Clarity,Urine Cloudy (Clear); Color,Urine Yellow (Yellow); Glucose,Urine (UA) Normal (Normal); Ketones,Urine Trace mg/dL (Negative); Leukocyte Esterase,Urine Moderate (Negative); Nitrite,Urine Negative (Negative); Protein,Urine >=300 mg/dL (Neg-Trace); Specific Gravity,Urine 1.023 (1.010-1.025); Urobilinogen,Urine Normal (Normal)
[2020-01-04 04:53] LABS: Squamous Epithelial Cell,Urine Many per lpf (None-Few); WBC,Urine 50-100 per hpf (0-3)
[2020-01-04] MEDS: Pantoprazole 40 MG VIAL IVP SCH ×2 (05:07→17:18)
[2020-01-04] MEDS: Piperacillin/Tazobactam 3.375 GM in 0.9 % Sodium Chloride Mini Bag 100 ML IVPB SCH ×2 (05:07→17:19)
[2020-01-04] MEDS: Artificial Tears SOLN 15 ML BOTTLE BOTH EYES SCH ×5 (05:08→19:41)
[2020-01-04 05:36] LABS: Basophils % 0.3 %; Eosinophils # 0.2 K/mcL (0.0-0.6); Eosinophils % 2.3 %; Hematocrit 26.2 % (37.5-50.1); Hemoglobin 8.4 g/dL (12.9-16.9); Immature Granulocytes % 0.4 % (0-4); Lymphocytes # 0.7 K/mcL (0.6-4.6); Lymphocytes % 10.3 %; Mean Corpuscular HGB Conc 32.1 g/dL (31.6-35.5); Mean Corpuscular Volume 90.3 fL (83.0-100.0); Mean Platelet Volume 12.2 fL (9.4-12.4); Monocytes % 14.7 %; Platelet Count 153 K/mcL (140-400); Red Cell Distribution Width 13.6 % (11.5-14.5)
[2020-01-04] MEDS: Heparin 25,000 UNIT/250 ML D5W 25,000 UNIT/250 ML IV.SOLN IVC SCH ×2 (05:40→13:30)
[2020-01-04 05:49] LABS: Transitional Epi Cells,Urine Few per hpf (None-Few)
[2020-01-04 05:52] LABS: Other Crystals,Urine Present
[2020-01-04 05:53] LABS: Fatty Casts,Urine Few per lpf (None Seen); Granular Casts,Urine Few per lpf (None Seen)
[2020-01-04 05:54] LABS: Bacteria,Urine Few per hpf (None-Few)
[2020-01-04 05:56] LABS: Albumin 3.1 g/dL (3.5-5.7); Albumin/Globulin Ratio 1.1 (1.1-2.2); Bilirubin,Total 0.4 mg/dL (0.3-1.0); Calcium 7.8 mg/dL (8.6-10.3); Globulin 2.7 g/dL (2.4-3.5); Magnesium 2.5 mg/dL (1.6-2.6); Potassium 4.1 mEq/L (3.5-5.1); Total Protein 5.8 g/dL (6.4-8.9)
[2020-01-04] MEDS: *HR* Dextrose 50 % in Water (Syg) 50 ML SYRINGE IVP PRN (07:17)
[2020-01-04] MEDS ORDERED: Furosemide 40 MG/4 ML VIAL IVP ONE (07:44)
[2020-01-04] MEDS: Chlorhexidine Rinse 15 ML MOUTHWASH MM SCH ×2 (08:22→19:42)
[2020-01-04] MEDS: D5% in Water 1,000 ML IVC PRN (08:22)
[2020-01-04] MEDS: FentaNYL (PF) 1,000 MCG/100 ML IV.SOLN IVC SCH ×2 (12:07→21:38)
[2020-01-05] MEDS: Artificial Tears SOLN 15 ML BOTTLE BOTH EYES SCH ×7 (00:04→23:15)
[2020-01-05 02:21] LABS: Basophils % 0.2 %; Eosinophils # 0.2 K/mcL (0.0-0.6); Eosinophils % 3.1 %; Hematocrit 24.6 % (37.5-50.1); Immature Granulocytes % 0.2 % (0-4); Lymphocytes # 0.9 K/mcL (0.6-4.6); Lymphocytes % 13.7 %; Mean Corpuscular HGB Conc 32.5 g/dL (31.6-35.5); Mean Corpuscular Hemoglobin 29.3 pg (28.0-33.3); Mean Corpuscular Volume 90.1 fL (83.0-100.0); Mean Platelet Volume 12.2 fL (9.4-12.4); Monocytes # 0.9 K/mcL (0.0-1.3); Monocytes % 13.5 %; Neutrophils # 4.4 K/mcL (1.6-8.9); Platelet Count 134 K/mcL (140-400); Red Blood Count 2.73 M/mcL (4.19-5.50); Red Cell Distribution Width 13.4 % (11.5-14.5); Segmented Neutrophils % 69.3 %; White Blood Count 6.4 K/mcL (4.3-11.1)
[2020-01-05 02:32] LABS: Calcium 7.6 mg/dL (8.6-10.3); Magnesium 2.4 mg/dL (1.6-2.6); Potassium 3.9 mEq/L (3.5-5.1)
[2020-01-05 04:00] LABS: ABG Base Excess -3 mEq/L (-2 to 3); ABG HCO3 22 mEq/L (21-27); ABG Oxygen Saturation 99 % (95-98); ABG PCO2 37 mmHg (35-45); ABG PH 7.38 pH Units (7.32-7.45); ABG PO2 127 mmHg (85-104); ABG TCO2 23 mEq/L (20-26); Blood Gas Modality AF; Blood Gas VT 550 cc
[2020-01-05] MEDS: Heparin 25,000 UNIT/250 ML D5W 25,000 UNIT/250 ML IV.SOLN IVC SCH (05:03)
[2020-01-05] MEDS: Piperacillin/Tazobactam 3.375 GM in 0.9 % Sodium Chloride Mini Bag 100 ML IVPB SCH ×2 (05:10→17:30)
[2020-01-05] MEDS: Pantoprazole 40 MG VIAL IVP SCH (05:10)
[2020-01-05] MEDS: FentaNYL (PF) 1,000 MCG/100 ML IV.SOLN IVC SCH ×2 (08:52→20:22)
[2020-01-05] MEDS: Chlorhexidine Rinse 15 ML MOUTHWASH MM SCH ×2 (08:53→20:22)
[2020-01-05] MEDS: D5% in Water 1,000 ML IVC PRN (08:53)
[2020-01-05] MEDS ORDERED: Aminoglycoside Consult 1 EACH MC ONE (12:21)
[2020-01-05] MEDS: *HR* Heparin 5,000 UNIT/ML VIAL SQ SCH (17:29)
[2020-01-05 18:22] LABS: VBG Ionized Calcium 1.02 mmol/L (1.15-1.35)
[2020-01-05] MEDS: QUEtiapine Fumarate 100 MG TABLET PO SCH (20:22)
[2020-01-06] MEDS: D5% in Water 1,000 ML IVC PRN (04:06)
[2020-01-06] MEDS: Artificial Tears SOLN 15 ML BOTTLE BOTH EYES SCH ×6 (04:07→23:37)
[2020-01-06 04:08] LABS: ABG Base Excess -3 mEq/L (-2 to 3); ABG HCO3 22 mEq/L (21-27); ABG Oxygen Saturation 97 % (95-98); ABG PCO2 38 mmHg (35-45); ABG PH 7.37 pH Units (7.32-7.45); ABG PO2 97 mmHg (85-104); ABG TCO2 23 mEq/L (20-26); Blood Gas Modality AF; Blood Gas VT 580 cc
[2020-01-06 04:41] LABS: Basophils % 0.3 %; Eosinophils # 0.3 K/mcL (0.0-0.6); Eosinophils % 5.5 %; Hemoglobin 8.4 g/dL (12.9-16.9); Immature Granulocytes % 0.3 % (0-4); Lymphocytes # 0.7 K/mcL (0.6-4.6); Lymphocytes % 11.9 %; Mean Corpuscular HGB Conc 32.3 g/dL (31.6-35.5); Mean Corpuscular Hemoglobin 29.3 pg (28.0-33.3); Mean Corpuscular Volume 90.6 fL (83.0-100.0); Monocytes # 0.9 K/mcL (0.0-1.3); Monocytes % 14.3 %; Neutrophils # 4.2 K/mcL (1.6-8.9); Platelet Count 138 K/mcL (140-400); Red Blood Count 2.87 M/mcL (4.19-5.50); Red Cell Distribution Width 13.3 % (11.5-14.5); Segmented Neutrophils % 67.7 %; White Blood Count 6.1 K/mcL (4.3-11.1)
[2020-01-06 05:01] LABS: Albumin 2.8 g/dL (3.5-5.7); Albumin/Globulin Ratio 1.1 (1.1-2.2); Bilirubin,Total 0.5 mg/dL (0.3-1.0); Calcium 7.8 mg/dL (8.6-10.3); Globulin 2.6 g/dL (2.4-3.5); Magnesium 2.4 mg/dL (1.6-2.6); Phosphorous 8.3 mg/dL (2.7-4.5); Total Protein 5.4 g/dL (6.4-8.9)
[2020-01-06] MEDS: *HR* Heparin 5,000 UNIT/ML VIAL SQ SCH ×2 (06:01→17:15)
[2020-01-06] MEDS: Piperacillin/Tazobactam 3.375 GM in 0.9 % Sodium Chloride Mini Bag 100 ML IVPB SCH ×2 (06:01→17:15)
[2020-01-06] MEDS: FentaNYL (PF) 1,000 MCG/100 ML IV.SOLN IVC SCH ×2 (07:55→16:50)
[2020-01-06] MEDS ORDERED: CeFAZolin Syr 2,000MG/20 ML 2,000 MG/20 ML SYRINGE IVPB ONE (08:00)
[2020-01-06] MEDS: Chlorhexidine Rinse 15 ML MOUTHWASH MM SCH ×2 (09:00→20:12)
[2020-01-06] MEDS: Pantoprazole 40 MG VIAL IVP SCH (09:00)
[2020-01-06] MEDS ORDERED: 0.9 % Sodium Chloride 500 ML ONE (09:40)
[2020-01-06 11:48] LABS: ABG Base Excess -6 mEq/L (-2 to 3); ABG HCO3 21 mEq/L (21-27); ABG Oxygen Saturation 97 % (95-98); ABG PCO2 44 mmHg (35-45); ABG PH 7.28 pH Units (7.32-7.45); ABG PO2 104 mmHg (85-104); ABG TCO2 22 mEq/L (20-26); Blood Gas Modality AF; Blood Gas VT 500 cc
[2020-01-06] MEDS: Dexmedetomidine HCl 400 MCG/100 ML MLS IVC SCH ×3 (13:25→22:24)
[2020-01-06] MEDS: *HR* Metoprolol 5 MG/5 ML VIAL IVP PRN ×2 (14:01→22:26)
[2020-01-06] MEDS: QUEtiapine Fumarate 100 MG TABLET PO SCH (20:12)
[2020-01-06] MEDS ORDERED: FentaNYL (PF) 2,500 MCG/50 ML IV.SOLN IVC SCH (20:30)
[2020-01-07] MEDS: Artificial Tears SOLN 15 ML BOTTLE BOTH EYES SCH ×3 (03:01→12:42)
[2020-01-07 03:31] LABS: Basophils % 0.4 %; Eosinophils # 0.4 K/mcL (0.0-0.6); Eosinophils % 7.8 %; Hematocrit 23.8 % (37.5-50.1); Hemoglobin 7.8 g/dL (12.9-16.9); Immature Granulocytes % 0.7 % (0-4); Lymphocytes # 0.5 K/mcL (0.6-4.6); Mean Corpuscular HGB Conc 32.8 g/dL (31.6-35.5); Mean Corpuscular Hemoglobin 29.4 pg (28.0-33.3); Mean Corpuscular Volume 89.8 fL (83.0-100.0); Mean Platelet Volume 11.3 fL (9.4-12.4); Monocytes # 0.5 K/mcL (0.0-1.3); Monocytes % 10.6 %; Neutrophils # 3.1 K/mcL (1.6-8.9); Platelet Count 138 K/mcL (140-400); Red Blood Count 2.65 M/mcL (4.19-5.50); Red Cell Distribution Width 13.1 % (11.5-14.5); Segmented Neutrophils % 68.5 %; White Blood Count 4.5 K/mcL (4.3-11.1)
[2020-01-07 03:53] LABS: Calcium 7.8 mg/dL (8.6-10.3); Potassium 3.7 mEq/L (3.5-5.1)
[2020-01-07] MEDS: Dexmedetomidine HCl 400 MCG/100 ML MLS IVC SCH ×3 (04:07→21:38)
[2020-01-07 04:56] LABS: ABG Base Excess -3 mEq/L (-2 to 3); ABG HCO3 23 mEq/L (21-27); ABG Oxygen Saturation 95 % (95-98); ABG PCO2 44 mmHg (35-45); ABG PH 7.33 pH Units (7.32-7.45); ABG PO2 84 mmHg (85-104); ABG TCO2 25 mEq/L (20-26); Blood Gas Modality AF; Blood Gas VT 580 cc
[2020-01-07] MEDS: Piperacillin/Tazobactam 3.375 GM in 0.9 % Sodium Chloride Mini Bag 100 ML IVPB SCH ×3 (05:11→21:22)
[2020-01-07] MEDS: *HR* Heparin 5,000 UNIT/ML VIAL SQ SCH ×2 (05:11→19:30)
[2020-01-07] MEDS: Chlorhexidine Rinse 15 ML MOUTHWASH MM SCH (07:46)
[2020-01-07] MEDS: Pantoprazole 40 MG VIAL IVP SCH (07:46)
[2020-01-07] MEDS: *HR* Metoprolol 5 MG/5 ML VIAL IVP PRN (09:47)
[2020-01-07] MEDS: *HR* Metoprolol 5 MG/5 ML VIAL IVP SCH ×2 (15:12→21:21)
[2020-01-07] MEDS: QUEtiapine Fumarate 100 MG TABLET PO SCH (20:26)
[2020-01-08] MEDS: Dexmedetomidine HCl 400 MCG/100 ML MLS IVC SCH ×2 (03:03→08:50)
[2020-01-08] MEDS: *HR* Metoprolol 5 MG/5 ML VIAL IVP SCH ×4 (03:04→19:46)
[2020-01-08] MEDS: *HR* Heparin 5,000 UNIT/ML VIAL SQ SCH ×2 (05:08→18:17)
[2020-01-08] MEDS: Piperacillin/Tazobactam 3.375 GM in 0.9 % Sodium Chloride Mini Bag 100 ML IVPB SCH ×3 (05:09→22:11)
[2020-01-08 06:40] LABS: Basophils % 0.3 %; Eosinophils % 0.1 %; Hematocrit 29.9 % (37.5-50.1); Hemoglobin 9.3 g/dL (12.9-16.9); Immature Granulocytes % 1.2 % (0-4); Lymphocytes # 0.4 K/mcL (0.6-4.6); Lymphocytes % 3.9 %; Mean Corpuscular HGB Conc 31.1 g/dL (31.6-35.5); Mean Corpuscular Hemoglobin 28.4 pg (28.0-33.3); Mean Corpuscular Volume 91.4 fL (83.0-100.0); Mean Platelet Volume 10.4 fL (9.4-12.4); Monocytes # 0.7 K/mcL (0.0-1.3); Monocytes % 7.4 %; Neutrophils # 8.1 K/mcL (1.6-8.9); Platelet Count 195 K/mcL (140-400); Red Blood Count 3.27 M/mcL (4.19-5.50); Red Cell Distribution Width 13.6 % (11.5-14.5); Segmented Neutrophils % 87.1 %
[2020-01-08 06:42] LABS: White Blood Count 9.3 K/mcL (4.3-11.1)
[2020-01-08 07:00] LABS: Calcium 8.6 mg/dL (8.6-10.3); Potassium 4.1 mEq/L (3.5-5.1)
[2020-01-08] MEDS ORDERED: *HR* LORazepam 2 MG/ML VIAL IVP ONE (07:24)
[2020-01-08] MEDS ORDERED: Ziprasidone 20 MG in Water for inj. (sterile) 1 ML IM ONE (07:39)
[2020-01-08] MEDS: Pantoprazole 40 MG VIAL IVP SCH (07:54)
[2020-01-08] MEDS: Ipratropium/Albuterol Neb 3 ML IH SCH ×2 (16:26→21:12)
[2020-01-09] MEDS: *HR* Metoprolol 5 MG/5 ML VIAL IVP SCH ×5 (00:45→19:23)
[2020-01-09] MEDS: Ipratropium/Albuterol Neb 3 ML IH SCH ×4 (03:26→22:02)
[2020-01-09 04:42] LABS: Basophils # 0.1 K/mcL (0.0-0.2); Basophils % 0.5 %; Eosinophils % 0.3 %; Hemoglobin 9.2 g/dL (12.9-16.9); Immature Granulocytes % 1.7 % (0-4); Lymphocytes # 0.3 K/mcL (0.6-4.6); Lymphocytes % 2.7 %; Mean Corpuscular HGB Conc 31.7 g/dL (31.6-35.5); Mean Corpuscular Hemoglobin 28.6 pg (28.0-33.3); Mean Corpuscular Volume 90.1 fL (83.0-100.0); Monocytes # 0.7 K/mcL (0.0-1.3); Monocytes % 5.9 %; Neutrophils # 10.2 K/mcL (1.6-8.9); Platelet Count 234 K/mcL (140-400); Red Blood Count 3.22 M/mcL (4.19-5.50); Segmented Neutrophils % 88.9 %; White Blood Count 11.5 K/mcL (4.3-11.1)
[2020-01-09 04:46] LABS: VBG Ionized Calcium 1.09 mmol/L (1.15-1.35)
[2020-01-09 05:03] LABS: Albumin 3.2 g/dL (3.5-5.7); Bilirubin,Total 0.7 mg/dL (0.3-1.0); Calcium 8.7 mg/dL (8.6-10.3); Globulin 3.3 g/dL (2.4-3.5); Magnesium 2.5 mg/dL (1.6-2.6); Phosphorous 8.4 mg/dL (2.7-4.5); Total Protein 6.5 g/dL (6.4-8.9)
[2020-01-09] MEDS: Piperacillin/Tazobactam 3.375 GM in 0.9 % Sodium Chloride Mini Bag 100 ML IVPB SCH ×3 (05:46→22:10)
[2020-01-09] MEDS: *HR* Heparin 5,000 UNIT/ML VIAL SQ SCH ×2 (05:47→18:36)
[2020-01-09] MEDS ORDERED: Ziprasidone 20 MG in Water for inj. (sterile) 1 ML IM SCH (09:00)
[2020-01-09] MEDS ORDERED: D5% in 0.45% NACL 1,000 ML IVC SCH (09:15)
[2020-01-09] MEDS: Pantoprazole 40 MG VIAL IVP SCH (09:17)
[2020-01-09] MEDS ORDERED: *HR* Metoprolol 5 MG/5 ML VIAL IVP ONE (09:20)
[2020-01-09] MEDS: Sodium Bicarbonate 75 MEQ in D5% in 0.45% NACL 1,000 ML IVC SCH (12:45)
[2020-01-09 14:27] LABS: Bilirubin,Urine Negative (Negative); Blood,Urine Large (Negative); Clarity,Urine Cloudy (Clear); Color,Urine Yellow (Yellow); Glucose,Urine (UA) Normal (Normal); Ketones,Urine 15 mg/dL (Negative); Leukocyte Esterase,Urine Negative (Negative); Nitrite,Urine Negative (Negative); PH,Urine 5.5 pH Units (5.0-8.0); Protein,Urine >=300 mg/dL (Neg-Trace); Urobilinogen,Urine Normal (Normal)
[2020-01-09] MEDS: NIFEdipine 10 MG CAPSULE PO SCH ×2 (14:58→21:00)
[2020-01-09 15:00] LABS: Bacteria,Urine Few per hpf (None-Few); RBC,Urine TNTC per hpf (0-3); Squamous Epithelial Cell,Urine Moderate per lpf (None-Few); WBC,Urine 0-3 per hpf (0-3)
[2020-01-09] MEDS: Metoprolol 100 MG TABLET PO SCH (21:00)
[2020-01-09] MEDS: QUEtiapine Fumarate 100 MG TABLET PO SCH (21:00)
[2020-01-10] MEDS: Ipratropium/Albuterol Neb 3 ML IH SCH ×4 (04:23→21:51)
[2020-01-10] MEDS: Piperacillin/Tazobactam 3.375 GM in 0.9 % Sodium Chloride Mini Bag 100 ML IVPB SCH ×3 (05:44→22:03)
[2020-01-10] MEDS: *HR* Heparin 5,000 UNIT/ML VIAL SQ SCH ×2 (05:44→17:07)
[2020-01-10 06:15] LABS: Basophils % 0.5 %; Eosinophils # 0.1 K/mcL (0.0-0.6); Eosinophils % 1.6 %; Hemoglobin 8.8 g/dL (12.9-16.9); Immature Granulocytes % 1.3 % (0-4); Lymphocytes # 0.3 K/mcL (0.6-4.6); Lymphocytes % 3.8 %; Mean Corpuscular HGB Conc 30.3 g/dL (31.6-35.5); Mean Corpuscular Hemoglobin 28.7 pg (28.0-33.3); Mean Corpuscular Volume 94.5 fL (83.0-100.0); Mean Platelet Volume 10.7 fL (9.4-12.4); Monocytes # 0.8 K/mcL (0.0-1.3); Monocytes % 10.1 %; Neutrophils # 6.6 K/mcL (1.6-8.9); Nucleated Red Blood Cells 0.3 /100 WBC (0); Platelet Count 170 K/mcL (140-400); Red Blood Count 3.07 M/mcL (4.19-5.50); Red Cell Distribution Width 14.6 % (11.5-14.5); Segmented Neutrophils % 82.7 %
[2020-01-10 06:29] LABS: Calcium 8.3 mg/dL (8.6-10.3); Potassium 3.4 mEq/L (3.5-5.1)
[2020-01-10] MEDS: Pantoprazole 40 MG VIAL IVP SCH (08:35)
[2020-01-10] MEDS: Sodium Bicarbonate 75 MEQ in D5% in 0.45% NACL 1,000 ML IVC SCH (08:38)
[2020-01-10] MEDS ORDERED: Furosemide 20 MG/2 ML VIAL IVP ONE (08:52)
[2020-01-10] MEDS: Metoprolol 100 MG TABLET PO SCH (08:54)
[2020-01-10] MEDS: NIFEdipine 10 MG CAPSULE PO SCH (08:54)
[2020-01-10] MEDS ORDERED: Furosemide 40 MG/4 ML VIAL IVP ONE (08:55)
[2020-01-10] MEDS ORDERED: Furosemide 100 MG in 0.9 % Sodium Chloride 50 ML IVPB ONE (09:03)
[2020-01-10] MEDS: Furosemide 40 MG/4 ML VIAL ONE (09:09)
[2020-01-10] MEDS: niCARdipine 20 MG/200 ML MLS IVC SCH ×4 (09:15→21:05)
[2020-01-10] MEDS ORDERED: *HR* LORazepam 2 MG/ML VIAL IVP PRN (14:28)
[2020-01-10 16:33] LABS: ABG Base Excess 1 mEq/L (-2 to 3); ABG HCO3 25 mEq/L (21-27); ABG Oxygen Saturation 98 % (95-98); ABG PCO2 41 mmHg (35-45); ABG PO2 103 mmHg (85-104); ABG TCO2 27 mEq/L (20-26); Blood Gas Modality AVAPS; Blood Gas VT 500 cc
[2020-01-10] MEDS: *HR* LORazepam 2 MG/ML VIAL IVP PRN (17:28)
[2020-01-10] MEDS: QUEtiapine Fumarate 100 MG TABLET PO SCH (20:10)
[2020-01-11] MEDS: *HR* LORazepam 2 MG/ML VIAL IVP PRN ×3 (00:30→04:59)
[2020-01-11] MEDS: niCARdipine 20 MG/200 ML MLS IVC SCH ×4 (01:10→10:38)
[2020-01-11 02:43] LABS: Basophils % 0.3 %; Eosinophils # 0.1 K/mcL (0.0-0.6); Eosinophils % 1.7 %; Hematocrit 25.5 % (37.5-50.1); Immature Granulocytes % 0.8 % (0-4); Lymphocytes # 0.5 K/mcL (0.6-4.6); Lymphocytes % 6.6 %; Mean Corpuscular HGB Conc 31.4 g/dL (31.6-35.5); Mean Corpuscular Hemoglobin 28.4 pg (28.0-33.3); Mean Corpuscular Volume 90.4 fL (83.0-100.0); Mean Platelet Volume 9.7 fL (9.4-12.4); Monocytes # 1.1 K/mcL (0.0-1.3); Monocytes % 14.1 %; Platelet Count 157 K/mcL (140-400); Red Blood Count 2.82 M/mcL (4.19-5.50); Red Cell Distribution Width 14.3 % (11.5-14.5); Segmented Neutrophils % 76.5 %; White Blood Count 7.8 K/mcL (4.3-11.1)
[2020-01-11 02:56] LABS: Albumin 3.1 g/dL (3.5-5.7); Bilirubin,Total 0.7 mg/dL (0.3-1.0); Calcium 8.3 mg/dL (8.6-10.3); Globulin 3.1 g/dL (2.4-3.5); Potassium 3.2 mEq/L (3.5-5.1); Total Protein 6.2 g/dL (6.4-8.9)
[2020-01-11] MEDS: Ipratropium/Albuterol Neb 3 ML IH SCH ×4 (04:11→21:23)
[2020-01-11 04:45] LABS: ABG Base Excess 1 mEq/L (-2 to 3); ABG HCO3 25 mEq/L (21-27); ABG Oxygen Saturation 93 % (95-98); ABG PCO2 39 mmHg (35-45); ABG PH 7.42 pH Units (7.32-7.45); ABG PO2 65 mmHg (85-104); ABG TCO2 27 mEq/L (20-26); Blood Gas Modality AVAPS; Blood Gas VT 500 cc
[2020-01-11] MEDS: *HR* Heparin 5,000 UNIT/ML VIAL SQ SCH ×2 (05:37→19:00)
[2020-01-11] MEDS: Piperacillin/Tazobactam 3.375 GM in 0.9 % Sodium Chloride Mini Bag 100 ML IVPB SCH ×3 (05:37→22:10)
[2020-01-11] MEDS: Pantoprazole 40 MG VIAL IVP SCH (08:15)
[2020-01-11] MEDS ORDERED: *HR* Heparin 5,000 UNIT/ML VIAL CRRT PRN (08:18)
[2020-01-11] MEDS ORDERED: 0.9 % Sodium Chloride 1,000 ML PRIME ONE ×2 (08:18)
[2020-01-11] MEDS ORDERED: 0.9 % Sodium Chloride 1,000 ML PRIME SCH (08:30)
[2020-01-11] MEDS ORDERED: Ziprasidone 20 MG in Water for inj. (sterile) 1 ML IM PRN (08:32)
[2020-01-11] MEDS ORDERED: Furosemide 40 MG/4 ML VIAL IVP ONE (09:28)
[2020-01-11] MEDS ORDERED: Albumin 25% 25gram/100mL 25 GM/100 ML IV.SOLN IVPB ONE (09:28)
[2020-01-11] MEDS: metOLazone 5 MG TABLET PO SCH ×3 (10:03→21:12)
[2020-01-11] MEDS: Furosemide 240 MG in 0.9 % Sodium Chloride 96 ML IVC SCH (10:36)
[2020-01-11 11:42] LABS: ABG Base Excess -2 mEq/L (-2 to 3); ABG HCO3 28 mEq/L (21-27); ABG Oxygen Saturation 100 % (95-98); ABG PCO2 92 mmHg (35-45); ABG PH 7.09 pH Units (7.32-7.45); ABG PO2 281 mmHg (85-104); ABG TCO2 31 mEq/L (20-26); Blood Gas Modality AVAPS; Blood Gas VT 500 cc
[2020-01-11] MEDS: FentaNYL (PF) 1,000 MCG/100 ML IV.SOLN IVC SCH ×2 (12:58→21:25)
[2020-01-11 13:48] LABS: ABG Base Excess -2 mEq/L (-2 to 3); ABG HCO3 24 mEq/L (21-27); ABG Oxygen Saturation 92 % (95-98); ABG PCO2 48 mmHg (35-45); ABG PH 7.31 pH Units (7.32-7.45); ABG PO2 72 mmHg (85-104); ABG TCO2 26 mEq/L (20-26); Blood Gas Modality AF; Blood Gas VT 550 cc
[2020-01-11] MEDS: PrismaSATE BGK 4/2.5 5,000 ML CRRT SCH ×2 (19:06→19:07)
[2020-01-11] MEDS: Nitroglycerin 1 INCH/GM PACKET TP SCH (19:07)
[2020-01-11] MEDS ORDERED: Artificial Tears SOLN 15 ML BOTTLE BOTH EYES PRN (20:10)
[2020-01-11 20:59] LABS: Basophils % 0.4 %; Eosinophils # 0.2 K/mcL (0.0-0.6); Eosinophils % 4.1 %; Hematocrit 23.2 % (37.5-50.1); Hemoglobin 7.2 g/dL (12.9-16.9); Immature Granulocytes % 0.8 % (0-4); Lymphocytes # 0.6 K/mcL (0.6-4.6); Lymphocytes % 12.6 %; Mean Corpuscular Hemoglobin 28.9 pg (28.0-33.3); Mean Corpuscular Volume 93.2 fL (83.0-100.0); Mean Platelet Volume 9.7 fL (9.4-12.4); Monocytes # 0.8 K/mcL (0.0-1.3); Monocytes % 15.6 %; Neutrophils # 3.3 K/mcL (1.6-8.9); Platelet Count 123 K/mcL (140-400); Red Blood Count 2.49 M/mcL (4.19-5.50); Red Cell Distribution Width 14.6 % (11.5-14.5); Segmented Neutrophils % 66.5 %; White Blood Count 4.9 K/mcL (4.3-11.1)
[2020-01-11] MEDS: QUEtiapine Fumarate 100 MG TABLET PO SCH (21:09)
[2020-01-11] MEDS: Chlorhexidine Rinse 15 ML MOUTHWASH MM SCH (21:09)
[2020-01-11 21:17] LABS: Calcium 8.3 mg/dL (8.6-10.3); Magnesium 2.3 mg/dL (1.6-2.6); Potassium 3.3 mEq/L (3.5-5.1)
[2020-01-11] MEDS: Potassium Chloride Elixir 20 MEQ/15 ML UDC GTUBE PRN (21:24)
[2020-01-11] MEDS: Artificial Tears SOLN 15 ML BOTTLE BOTH EYES SCH (23:07)
[2020-01-12] MEDS: Artificial Tears SOLN 15 ML BOTTLE BOTH EYES SCH ×6 (03:08→23:10)
[2020-01-12 03:27] LABS: Basophils % 0.2 %; Eosinophils # 0.3 K/mcL (0.0-0.6); Eosinophils % 5.8 %; Hematocrit 22.1 % (37.5-50.1); Hemoglobin 6.9 g/dL (12.9-16.9); Immature Granulocytes % 0.7 % (0-4); Lymphocytes # 0.7 K/mcL (0.6-4.6); Lymphocytes % 16.2 %; Mean Corpuscular HGB Conc 31.2 g/dL (31.6-35.5); Mean Corpuscular Hemoglobin 29.2 pg (28.0-33.3); Mean Corpuscular Volume 93.6 fL (83.0-100.0); Monocytes # 0.6 K/mcL (0.0-1.3); Monocytes % 14.4 %; Neutrophils # 2.7 K/mcL (1.6-8.9); Platelet Count 117 K/mcL (140-400); Red Blood Count 2.36 M/mcL (4.19-5.50); Red Cell Distribution Width 14.7 % (11.5-14.5); Segmented Neutrophils % 62.7 %; White Blood Count 4.3 K/mcL (4.3-11.1)
[2020-01-12] MEDS: Ipratropium/Albuterol Neb 3 ML IH SCH ×4 (03:28→21:54)
[2020-01-12 03:46] LABS: Albumin/Globulin Ratio 1.2 (1.1-2.2); Bilirubin,Total 0.6 mg/dL (0.3-1.0); Globulin 2.5 g/dL (2.4-3.5); Potassium 3.7 mEq/L (3.5-5.1); Total Protein 5.5 g/dL (6.4-8.9)
[2020-01-12 04:01] LABS: ABG Base Excess 2 mEq/L (-2 to 3); ABG HCO3 27 mEq/L (21-27); ABG Oxygen Saturation 96 % (95-98); ABG PCO2 45 mmHg (35-45); ABG PH 7.39 pH Units (7.32-7.45); ABG PO2 86 mmHg (85-104); ABG TCO2 28 mEq/L (20-26); Blood Gas Modality VC; Blood Gas VT 550 cc
[2020-01-12] MEDS: Nitroglycerin 1 INCH/GM PACKET TP SCH ×2 (04:15→11:01)
[2020-01-12] MEDS: Potassium Chloride Elixir 20 MEQ/15 ML UDC GTUBE PRN ×2 (04:18→14:41)
[2020-01-12] MEDS: PrismaSATE BGK 4/2.5 5,000 ML CRRT SCH ×2 (04:55)
[2020-01-12] MEDS: Piperacillin/Tazobactam 3.375 GM in 0.9 % Sodium Chloride Mini Bag 100 ML IVPB SCH ×3 (05:01→22:03)
[2020-01-12] MEDS: FentaNYL (PF) 1,000 MCG/100 ML IV.SOLN IVC SCH ×2 (06:30→18:49)
[2020-01-12] MEDS: Pantoprazole 40 MG VIAL IVP SCH (07:44)
[2020-01-12] MEDS: metOLazone 5 MG TABLET PO SCH ×2 (07:44→20:25)
[2020-01-12] MEDS: Chlorhexidine Rinse 15 ML MOUTHWASH MM SCH ×2 (07:44→20:25)
[2020-01-12 09:11] LABS: Potassium 3.8 mEq/L (3.5-5.1)
[2020-01-12] MEDS ORDERED: 0.9 % Sodium Chloride 250 ML IVC SCH (09:30)
[2020-01-12 11:00] LABS: Thyroid Stimulating Hormone 3.63 mcIU/mL (0.340-5.600)
[2020-01-12] MEDS: Furosemide 240 MG in 0.9 % Sodium Chloride 96 ML IVC SCH (11:00)
[2020-01-12 17:08] LABS: Potassium 5.1 mEq/L (3.5-5.1)
[2020-01-13] MEDS: Nitroglycerin 1 INCH/GM PACKET TP SCH ×2 (03:17→14:54)
[2020-01-13] MEDS: Artificial Tears SOLN 15 ML BOTTLE BOTH EYES SCH ×6 (03:17→23:55)
[2020-01-13] MEDS: PrismaSATE BGK 4/2.5 5,000 ML CRRT SCH ×2 (03:18)
[2020-01-13 03:33] LABS: VBG Ionized Calcium 1.11 mmol/L (1.15-1.35)
[2020-01-13 03:38] LABS: Hematocrit 30.5 % (37.5-50.1); Mean Corpuscular HGB Conc 31.1 g/dL (31.6-35.5); Mean Corpuscular Hemoglobin 28.3 pg (28.0-33.3); Mean Corpuscular Volume 90.8 fL (83.0-100.0); Mean Platelet Volume 10.2 fL (9.4-12.4); Platelet Count 121 K/mcL (140-400); Red Blood Count 3.36 M/mcL (4.19-5.50); Red Cell Distribution Width 15.5 % (11.5-14.5); White Blood Count 5.8 K/mcL (4.3-11.1)
[2020-01-13 03:40] LABS: Hemoglobin 9.5 g/dL (12.9-16.9)
[2020-01-13] MEDS: Ipratropium/Albuterol Neb 3 ML IH SCH ×4 (03:40→21:02)
[2020-01-13 03:49] LABS: Phosphorous 4.1 mg/dL (2.7-4.5); Potassium 3.9 mEq/L (3.5-5.1)
[2020-01-13] MEDS: Potassium Chloride Elixir 20 MEQ/15 ML UDC GTUBE PRN (03:57)
[2020-01-13 04:43] LABS: ABG Base Excess 1 mEq/L (-2 to 3); ABG HCO3 26 mEq/L (21-27); ABG Oxygen Saturation 99 % (95-98); ABG PCO2 40 mmHg (35-45); ABG PH 7.42 pH Units (7.32-7.45); ABG PO2 134 mmHg (85-104); ABG TCO2 27 mEq/L (20-26); Blood Gas Modality AF; Blood Gas VT 500 cc
[2020-01-13] MEDS: FentaNYL (PF) 1,000 MCG/100 ML IV.SOLN IVC SCH ×2 (05:03→20:13)
[2020-01-13] MEDS: Piperacillin/Tazobactam 3.375 GM in 0.9 % Sodium Chloride Mini Bag 100 ML IVPB SCH ×3 (05:03→22:29)
[2020-01-13] MEDS: metOLazone 5 MG TABLET PO SCH ×2 (07:37→20:12)
[2020-01-13] MEDS: Chlorhexidine Rinse 15 ML MOUTHWASH MM SCH ×2 (07:37→20:12)
[2020-01-13] MEDS: Pantoprazole 40 MG VIAL IVP SCH (07:37)
[2020-01-13] MEDS: Furosemide 240 MG in 0.9 % Sodium Chloride 96 ML IVC SCH (07:37)
[2020-01-13] MEDS ORDERED: 0.9 % Sodium Chloride 250 ML IVC PRN (10:14)
[2020-01-13] MEDS ORDERED: *HR* Heparin 10,000 UNIT/10 ML VIAL IV PRN (10:14)
[2020-01-13] MEDS ORDERED: 0.9 % Sodium Chloride 1,000 ML PRIME SCH (10:15)
[2020-01-13] MEDS: *HR* Heparin 5,000 UNIT/ML VIAL SQ SCH ×2 (13:57→22:30)
[2020-01-13] MEDS ORDERED: Acetaminophen IV 500 MG/50 ML INFUS..BTL IVPB ONE (21:34)
[2020-01-14] MEDS: Ipratropium/Albuterol Neb 3 ML IH SCH ×2 (03:01→09:15)
[2020-01-14 04:11] LABS: ABG Base Excess 2 mEq/L (-2 to 3); ABG HCO3 27 mEq/L (21-27); ABG Oxygen Saturation 96 % (95-98); ABG PCO2 47 mmHg (35-45); ABG PH 7.37 pH Units (7.32-7.45); ABG PO2 86 mmHg (85-104); ABG TCO2 29 mEq/L (20-26); Blood Gas Modality VC; Blood Gas VT 500 cc
[2020-01-14] MEDS: FentaNYL (PF) 1,000 MCG/100 ML IV.SOLN IVC SCH (04:21)
[2020-01-14] MEDS: Artificial Tears SOLN 15 ML BOTTLE BOTH EYES SCH ×6 (04:30→20:56)
[2020-01-14 04:38] LABS: Hemoglobin 10.5 g/dL (12.9-16.9)
[2020-01-14 04:38] LABS: VBG Ionized Calcium 1.06 mmol/L (1.15-1.35)
[2020-01-14 04:40] LABS: Hematocrit 34.2 % (37.5-50.1); Immature Platelets 5.6 % (1.1-6.1); Mean Corpuscular HGB Conc 30.7 g/dL (31.6-35.5); Mean Corpuscular Hemoglobin 28.2 pg (28.0-33.3); Mean Corpuscular Volume 91.9 fL (83.0-100.0); Mean Platelet Volume 11.8 fL (9.4-12.4); Red Blood Count 3.72 M/mcL (4.19-5.50); Red Cell Distribution Width 14.8 % (11.5-14.5)
[2020-01-14 04:58] LABS: Phosphorous 4.1 mg/dL (2.7-4.5)
[2020-01-14 04:59] LABS: Calcium 7.9 mg/dL (8.6-10.3); Potassium 4.2 mEq/L (3.5-5.1)
[2020-01-14] MEDS: Piperacillin/Tazobactam 3.375 GM in 0.9 % Sodium Chloride Mini Bag 100 ML IVPB SCH ×2 (06:04→13:09)
[2020-01-14] MEDS: *HR* Heparin 5,000 UNIT/ML VIAL SQ SCH ×2 (06:05→13:09)
[2020-01-14] MEDS: Nitroglycerin 1 INCH/GM PACKET TP SCH ×2 (06:06→11:40)
[2020-01-14] MEDS: PrismaSATE BGK 4/2.5 5,000 ML CRRT SCH ×2 (07:36)
[2020-01-14] MEDS: Chlorhexidine Rinse 15 ML MOUTHWASH MM SCH (08:07)
[2020-01-14] MEDS: metOLazone 5 MG TABLET PO SCH ×2 (08:07→20:54)
[2020-01-14] MEDS: Pantoprazole 40 MG VIAL IVP SCH (08:08)
[2020-01-14] MEDS ORDERED: Thiamine (B-1) 100 MG in 0.9 % Sodium Chloride 50 ML IVPB SCH (11:00)
[2020-01-14] MEDS ORDERED: *HR* FentaNYL (PF) 100 MCG/2 ML VIAL IVP PRN (13:38)
[2020-01-14] MEDS ORDERED: Atropine Sulfate 1% 40 DROP/2 ML BOTTLE SL PRN (13:39)
[2020-01-14] MEDS ORDERED: *HR* LORazepam 2 MG/ML VIAL IVP PRN ×2 (13:52→15:19)
[2020-01-14] MEDS ORDERED: Artificial Tears SOLN 15 ML BOTTLE BOTH EYES PRN (15:19)
[2020-01-14] MEDS: Atropine Sulfate 1% 40 DROP/2 ML BOTTLE SL PRN (16:34)
[2020-01-14] MEDS: *HR* FentaNYL (PF) 100 MCG/2 ML VIAL IVP PRN (18:47)
[2020-01-15] MEDS: Artificial Tears SOLN 15 ML BOTTLE BOTH EYES SCH ×7 (00:15→23:02)
[2020-01-15] MEDS: *HR* FentaNYL (PF) 100 MCG/2 ML VIAL IVP PRN ×4 (02:24→19:56)
[2020-01-15] MEDS: Atropine Sulfate 1% 40 DROP/2 ML BOTTLE SL PRN ×5 (02:27→21:54)
[2020-01-15] MEDS: metOLazone 5 MG TABLET PO SCH (08:07)
[2020-01-15] MEDS ORDERED: *HR* LORazepam 2 MG/ML VIAL IVP PRN (09:14)
[2020-01-15] MEDS ORDERED: Scopolamine Patch 1.5 MG PATCH.TD72 TD SCH (09:15)
[2020-01-15] MEDS: Haloperidol Lactate 5 MG/ML VIAL IVP SCH ×4 (10:09→23:01)
[2020-01-16] MEDS: *HR* FentaNYL (PF) 100 MCG/2 ML VIAL IVP PRN ×4 (01:06→11:20)
[2020-01-16] MEDS: Atropine Sulfate 1% 40 DROP/2 ML BOTTLE SL PRN ×2 (01:06→04:38)
[2020-01-16] MEDS ORDERED: Acetaminophen IV 1,000 MG/100 ML INFUS..BTL IVPB ONE (03:30)
[2020-01-16] MEDS: Artificial Tears SOLN 15 ML BOTTLE BOTH EYES SCH ×2 (04:37→07:52)
[2020-01-16] MEDS: Haloperidol Lactate 5 MG/ML VIAL IVP SCH (05:01)
[2020-01-16 06:41] VITALS: BP 213/94
[2020-01-16] MEDS ORDERED: *HR* FentaNYL (PF) 100 MCG/2 ML VIAL IVP ONE (08:31)
[2020-01-16] MEDS ORDERED: *HR* LORazepam 2 MG/ML VIAL IVP PRN (08:39)
[2020-01-16] MEDS ORDERED: Acetaminophen 650 MG RECTAL SUPP RC PRN (11:24)
== END 2020-01-16 12:04 | disposition expired | DRG 242 ==
LOC: SUATTDRO 22:36 → ICNU 22:36 → 2ANU 01-14 16:13
PROVIDERS: ADMIT Family Medicine; ATTEND Internal Medicine
PROC: ENDOEBX (2020-01-03 14:30)